=== PATIENT | female | born 1955 | race Two or more races ===

== ENCOUNTER 2019-01-25 11:43 | Emergency (ER) | payer MEDICAID ==
[~2019-01-25] VITALS: Ht 162.6 cm; Wt 68.0 kg
--- NOTE | 2019-01-25 12:02 | NUR ---
PT BIB C/O LLE/ LT KNEE PAIN SINCE YESTERDAY, GOT WORST S/P TRIP AND FALL LAST NIGHT. PT ENDORSES 10/10 PS. PT AAOX4, VSS, BREATHING EVEN AND UNLABORED ON ROOM AIR W/ NAD NOTED. PT CONNECTED TO THE MONITOR AND POX.
[2019-01-25] MEDS ORDERED: IBUPROFEN 600 MG TABLET PO ONE ×2 (12:10→12:30)
--- NOTE | 2019-01-25 12:40 | NUR ---
XRAY AT BEDSIDE
[2019-01-25 13:42] VITALS: BP 124/74
--- NOTE | 2019-01-25 13:42 | NUR ---
Patient discharged to home in stable condition. Written and verbal after care instructions given. Patient verbalizes understanding of instruction.
== END 2019-01-25 13:43 | disposition home or self-care (01) ==
LOC: ER 11:43
DX: M25.562 Pain in left knee (principal); X50.1XXA Overexertion from prolonged static or awkward postures, initial encounter; Y93.01 Activity, walking, marching and hiking; Y92.89 Other specified places as the place of occurrence of the external cause; Y99.8 Other external cause status
CPT/HCPCS: 73564-TC